=== PATIENT | male | born 1985 | race Asian ===

== ENCOUNTER 2023-05-29 08:38 | Emergency (ER) | payer OTHER, SELFPAY ==
--- NOTE | 2023-05-29 08:46 | DI.RAD.S_ITS ---
PROCEDURE: XR RIBS RT MIN 3V W CXR 1V INDICATIONS: injury on boat TECHNIQUE: 2 views of the right ribs were acquired, along with a single view chest. COMPARISON: None. FINDINGS: Surgical changes and devices: Bones and chest wall: No fractures or dislocations. No suspicious bony lesions. Overlying soft tissues appear unremarkable. Lungs and pleura: No pleural effusions or pneumothorax. Lungs appear clear. Mediastinum: Mediastinal contours appear normal. Heart size is normal. IMPRESSION: No evidence of displaced right rib fracture. No evidence acute pulmonary process. Dictated by: Osei Calzada M.D. on 05/29/2023 at 9:23 Approved by: Osei Calzada M.D. on 05/29/2023 at 9:25
[2023-05-29 08:47] VITALS: BP 125/76; PULSE 88; RESP 17; TEMP 36.9; O2SAT 98; BMI 26.9
--- NOTE | 2023-05-29 09:16 | ED.CHESTPAIN ---
HPI - Chest Pain General Chief Complaint: Chest Pain Stated Complaint: R/ lower Rib injury Time Seen by Provider: 05/29/23 09:14 Source: patient Mode of arrival: Ambulatory History of Present Illness HPI narrative: Patient is a healthy 37-year-old male who presents today with right-sided rib pain. 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 He was given ibuprofen and lidocaine patches on the boat which seems to help. He still having some discomfort but wanted to be checked out. No fever chills no abdominal pain no nausea or vomiting. You can see a slight denita where it was. Related Data Previous Rx's Medication Instructions Recorded ibuprofen 800 mg tablet 800 mg PO Q8H PRN pain #30 tabs 05/29/23 lidocaine 5 % topical patch 1 patch topical DAILY PRN pain #30 05/29/23 ea Allergies Allergy/AdvReac Type Severity Reaction Status Date / Time No Known Allergies Allergy Uncoded 05/29/23 08:49 Review of Systems Review of Systems ROS Unobtainable: All systems reviewed & are unremarkable except as noted in HPI and below Patient History Social History Smoking Status: Current some day smoker Smoking Status: Current some day smoker alcohol intake frequency: other Substance Use Type: does not use Exam Initial Vital Signs Initial Vital Signs: Vital Signs Temperature 98.5 F 05/29/23 08:47 Pulse Rate 88 05/29/23 08:47 Respiratory Rate 17 05/29/23 08:47 Blood Pressure 125/76 05/29/23 08:47 Pulse Oximetry 98 05/29/23 08:47 Oxygen Delivery Method Room Air 05/29/23 08:47 GENERAL: Alert well-appearing 37-year-old male and in no acute distress. HEENT: Head atraumatic,EOMI, pupils reactive, face symmetric, moist mucous membranes CARDIOVASCULAR: Regular rate and rhythm without murmurs, rubs or gallops. RESPIRATORY: Breath sounds equal bilaterally, no wheezes rales or rhonchi. small abrasion but very light no contusions no erythema no paradoxical movement pain is reproducible to touch ABDOMEN: Soft, no right lower quadrant pain no guarding no rebound : No CVA tenderness EXTREMITIES: Normal range of motion, no clubbing or edema. Neurovascularly intact NEUROLOGICAL: Alert and oriented x4.Normal gait and speech. SKIN: Warm, dry, no laceration, no petechiae, no rashes or lesions. Course Orders Ordered: ED Orders 05/29/23 08:46 XR ribs RT min 3V w CXR1V Stat Vital Signs Vital signs: Vital Signs - 8 hr 05/29/23 08:47 05/29/23 09:49 Temperature 98.5 F Pulse Rate 88 75 Respiratory Rate 17 Blood Pressure 125/76 120/75 Pulse Oximetry 98 98 Oxygen Delivery Method Room Air Room Air MDM - Chest Pain MDM Narrative Medical decision making narrative: Patient is a 37-year-old male presents 2 weeks after injury work. Mild right rib pain. X-ray is negative fracture very small abrasion. He is doing well lidocaine patches and Motrin. Requesting more of them. Discharge Plan Departure Patient Disposition: Home Clinical Impression: Contusion of rib on right side Instructions: DI for Rib Contusion Activity Restrictions/Additional Instructions: *You have been diagnosed with right rib contusion *What to do: At this time no evidence of fracture. Try ice 20-30 minutes at a time *Continue to take medications as directed Lidocaine patch 12 hours at a time and then remove Motrin 800 mg every 8 hours if needed for [id number] pain *Follow up with your primary care provider in 2-3 days or call [phone] *Return to ER if you should have increasing pain shortness of breath or any new, worsening or concerning symptoms Prescriptions: New ibuprofen 800 mg tablet 800 mg PO Q8H PRN (Reason: pain) Qty: 30 0RF lidocaine 5 % adhesive patch,medicated 1 patch topical DAILY PRN (Reason: pain) Qty: 30 0RF Rx Instructions: leave on most painful area for up to 12 hrs then remove for 12 hours Referrals: Miscellaneous,Doctor, [Primary Care Provider] - Stand Alone Forms: Patient Portal/API
[2023-05-29 09:49] VITALS: BP 120/75; PULSE 75; O2SAT 98
== END 2023-05-29 09:49 | disposition home or self-care (01) ==
PROVIDERS: Emergency Provider Emergency Medicine
DX: S20.211A Contusion of right front wall of thorax, initial encounter (principal); W01.0XXA Fall on same level from slipping, tripping and stumbling without subsequent striking against object, initial encounter; Y99.0 Civilian activity done for income or pay
CPT/HCPCS: 71101; 99281; 99283